=== PATIENT | male | born 1990 | race Asian ===

== ENCOUNTER 2017-02-07 08:41 | Emergency (ER) | payer OTHER ==
[2017-02-07 08:46] VITALS: BP 129/90
== END 2017-02-07 13:13 | disposition home or self-care (01) ==
LOC: ED 08:41
DX: M51.36 Other intervertebral disc degeneration, lumbar region (principal)
CPT/HCPCS: J1885

== ENCOUNTER → 2017-06-17 | Outpatient (CLI) | payer OTHER | END | disposition home or self-care (01) | LOC: LB 11:42 | DX: R56.9 Unspecified convulsions (principal) ==

== ENCOUNTER → 2018-06-28 | Outpatient (CLI) | payer OTHER | LOC: LB 17:43 | DX: R56.9 Unspecified convulsions (principal) ==

== ENCOUNTER → 2019-08-03 | Outpatient (CLI) | payer OTHER | END | disposition home or self-care (01) | LOC: LB 15:57 | DX: R56.9 Unspecified convulsions (principal) ==